=== PATIENT | female | born 1960 | race Caucasian/White ===

== ENCOUNTER → 2020-03-21 | Outpatient (CLI) | payer OTHER ==
--- NOTE | 2020-03-21 14:48 | XR ---
Bilateral hips HISTORY: Pain 2 views of each hip submitted There is an insertional enthesophyte bilaterally the greater trochanters. Marginal spurring present a t the femoral heads. Bone mineralization and alignment are maintained. No fracture or dislocation. Jeffries rgical clips present in the pelvis. IMPRESSION: Mild osteoarthritis.
--- NOTE | 2020-03-21 15:06 | XR ---
Lumbar spine HISTORY: Radiculopathy, pain in hip, M 54.16 3 views of the lumbar spine Bone mineralization, alignment, vertebral body height are maintained. Mild loss of the disc height at L5-S1. There is mild multilevel spondylosis. Sclerosis is present in the posterior elements. Surgica l clips present in the pelvis. Suspect there are vascular calcifications present. IMPRESSION: Degenerative disc disease and facet arthropathy. Additional findings above.
== END | disposition home or self-care (01) ==
LOC: RADXRMAIN 11:28
PROVIDERS: ATTEND Nurse Practitioner Adult Health
DX: M51.16 Intervertebral disc disorders with radiculopathy, lumbar region (principal); M16.0 Bilateral primary osteoarthritis of hip
CPT/HCPCS: 72100; 73521

== ENCOUNTER → 2021-12-15 | Outpatient (CLI) | payer OTHER ==
--- NOTE | 2021-12-16 09:03 | US ---
EXAMINATION TYPE: US arterial LE multi level DATE OF EXAM: 12/15/2021 11:13 AM CLINICAL HISTORY: I73.9 VASCULAR DISEASE R06.02 SOB R07.9 CHEST PAIN. History of diabetes, tobacco us e, hyperlipidemia, and resting pain. Doppler Waveforms: Right: Monophasic multiphasic Left: Monophasic to biphasic Pressure Gradients: Flattened Ankle-Brachial Indices: Right: 1.03 Left: 0.72 IMPRESSION: Normal KARTHIKEYAN values. Loss of phasicity is present, this however may be technical in etiolo gy. Correlate clinically.
== END | disposition home or self-care (01) ==
LOC: RADUSWWP 10:37
PROVIDERS: ATTEND Family Medicine
DX: I73.9 Peripheral vascular disease, unspecified (principal)
CPT/HCPCS: 93923

== ENCOUNTER → 2022-02-05 | Outpatient (CLI) | payer OTHER ==
--- NOTE | 2022-02-05 10:38 | CTL ---
EXAMINATION TYPE: CT Low Dose Lung DATE OF EXAM ORDERED: 02/05/2022 COMPARISON: none HISTORY: . Low Dose CT Lung Screening CT DLP: 95.[address] CTDI: 2.7 mGy IV CONTRAST USED: None. SCREENING VISIT: First visit COMPARISON: None. TECHNIQUE: Low dose computed tomography scan was performed through the chest at 1 millimeter thick se ctions and reconstructed images in the coronal plane at [address] DIAGNOSTIC QUALITY: Satisfactory FINDINGS: LUNG NODULES: Not presentLeft lung: no nodules identified.Right lung: no nodules identified. Calcifi ed granuloma right lower lobe. LUNGS: COPD: Severity: None Fibrosis: Severity:None Lymph nodes: None Other findings: None RIGHT PLEURAL SPACE: Effusion: None Calcification: None Thickening: None Pneumothorax: None LEFT PLEURAL SPACE: Effusion: None Calcification: None Thickening: None Pneumothorax: None HEART: Heart Size: Mildly enlarged Coronary calcification: Mild Pericardial effusion: None OTHER FINDINGS: Upper abdomen: No significant abnormality Bony thorax: Degenerative changes Supraclavicular region: No significant abnormalityOther: No significant abnormalityI IMPRESSION: Evidence of remote granulomatous disease. FOLLOW UP CT CHEST RECOMMENDATION: Follow-up screening in one year CT LUNG RAD: LUNG RAD CATEGORY 2 benign
== END | disposition home or self-care (01) ==
LOC: RADCTMAIN 09:26
PROVIDERS: ATTEND Family Medicine
DX: Z12.2 Encounter for screening for malignant neoplasm of respiratory organs (principal); Z87.891 Personal history of nicotine dependence
CPT/HCPCS: 71271

== ENCOUNTER → 2022-02-12 | Outpatient (CLI) | payer OTHER ==
--- NOTE | 2022-02-12 18:09 | CA ---
Stress Echo Report Liza Mack Age: 61 Gender: F : 1960 Exam Date: 02/12/2022 09:36 Exam Location: [facility] Ht (in): 62 Wt (lb): 160 Ordering Physician: Ashely Moreno MD Referring Physician: JERSON,, Electrical Hardware Engineer: Stephanie Chilel RDCS Technologist Procedure CPT: Indication: I73.9 VASCULAR DISEASE R06.02 SOB R07.9 CHEST PAIN ICD-9 Codes: Rhythm: Patient History: Cardiac Medications: Medications in past 24 hours: Contrast: Lumason Stress Results Protocol: Samy Total dose(mL): 5 Exercise Duration (min:sec): Max ST Depression (mm): Angina Score: Gar Score: METS: 4.6 Resting HR: 87 Resting BP: 116 / 64 Peak HR: 121 Peak BP: 135 / 75 Max Predicted HR: 161 75 % Max Predicted HR Target HR: 137 Double Product: [id number] Stress Summary: BP Response: Reason for Termination: Cardiac Symptoms: ECG Analysis Resting ECG: Stress ECG: Arrhythmia: Echo Analysis Resting Echo: Peak Echo Analysis: MEASUREMENTS (Male/Female) Normal Values CONCLUSIONS Average exercise tolerance Normal EKG in response to exercise Normal echocardiogram in response to exercise Dr. Gian Marquez MD (Electronically Signed) Final Date: 12 February 2022 18:08
== END ==
LOC: RADNMMAIN 09:11
PROVIDERS: ATTEND Family Medicine
DX: R06.02 Shortness of breath (principal); I73.9 Peripheral vascular disease, unspecified; R07.9 Chest pain, unspecified
CPT/HCPCS: C8930; Q9950; 93351

== ENCOUNTER → 2022-03-22 | Outpatient (CLI) | payer OTHER ==
--- NOTE | 2022-03-23 09:39 | CA ---
Transthoracic Echo Report Name: Liza Mack Age: 61 Gender: F : 1960 Exam Date: 03/22/2022 13:20 Exam Location: [facility] Ht (in): 62 Wt (lb): 150 Ordering Physician: Ashely Moreno MD Attending/Referring Phys: Ashely Moreno MD Operator Prefinish Daisy Jeronimo RDCS Procedure CPT: Indications: I73.9 VASCULAR DISEASE R06.02 SOB R07.9 CHEST PAIN Cardiac Hx: Technical Quality: Fair Contrast 1: Total Dose (mL): Contrast 2: Total Dose (mL): MEASUREMENTS (Male / Female) Normal Values 2D ECHO LV Diastolic Diameter PLAX 3.5 cm 4.2 - 5.9 / 3.9 - 5.3 cm LV Systolic Diameter PLAX 2.5 cm IVS Diastolic Thickness 0.9 cm 0.6 - 1.0 / 0.6 - 0.9 cm LVPW Diastolic Thickness 1.0 cm 0.6 - 1.0 / 0.6 - 0.9 cm LV Relative Wall Thickness 0.5 RV Internal Dim ED PLAX 2.3 cm LA Volume 28.4 cm??? 18 - 58 / 22 - 52 cm??? M-MODE Aortic Root Diameter MM 3.2 cm LA Systolic Diameter MM 3.1 cm LA Ao Ratio MM 1.0 AV Cusp Separation MM 1.9 cm DOPPLER AV Peak Velocity 125.0 cm/s AV Peak Gradient 6.2 mmHg AV Mean Velocity 71.8 cm/s AV Mean Gradient 2.4 mmHg AV Velocity Time Integral 19.2 cm LVOT Peak Velocity 123.9 cm/s LVOT Peak Gradient 6.1 mmHg LVOT Velocity Time Integral 25.9 cm MV Area PHT 4.3 cm??? Mitral E Point Velocity 56.7 cm/s Mitral A Point Velocity 97.1 cm/s Mitral E to A Ratio 0.6 MV Deceleration Time 175.6 ms TR Peak Velocity 195.7 cm/s TR Peak Gradient 15.3 mmHg Right Ventricular Systolic Press 20.3 mmHg FINDINGS Left Ventricle Normal Left ventricular size, wall thickness, systolic function with no obvious regional wall motion abnormalities. Normal Left ventricular diastolic filling pattern. Left ventricular ejection fraction is estimated at 55-60 %. Right Ventricle Normal right ventricular size and function. Right ventricular systolic pressure within normal limits. Right Atrium Normal right atrial size. Left Atrium Normal left atrial size. Mitral Valve Structurally normal mitral valve. Mitral valve thickened. Mild mitral annular calcification. Mild mitral regurgitation. Aortic Valve No aortic valve stenosis or regurgitation. Tricuspid Valve Structurally normal tricuspid valve. Mild tricuspid regurgitation. Pulmonic Valve Trace pulmonic regurgitation. Pericardium No pericardial effusion. Echo free space anterior to the right ventricle likely represents a fat pad. Aorta Normal size aortic root and proximal ascending aorta. CONCLUSIONS Normal biventricular dimension and systolic function Mitral annular calcifications Previewed by: Dr. Gian Marquez MD (Electronically Signed) Final Date: 23 March 2022 09:37
== END | disposition home or self-care (01) ==
LOC: RADECHMAIN 13:18
PROVIDERS: ATTEND Family Medicine
DX: I34.81 Nonrheumatic mitral (valve) annulus calcification (principal)
CPT/HCPCS: 93306

== ENCOUNTER → 2022-12-16 | Outpatient (CLI) | payer OTHER ==
--- NOTE | 2022-12-16 11:31 | US ---
EXAMINATION TYPE: US arterial LE multi level DATE OF EXAM: 12/16/2022 9:43 AM COMPARISON: 12/15/2021 CLINICAL INDICATION: Female, 62 years old with history of I73.9 PERIPHERAL VASCULAR DISEASE; PVD History of: Smoker: Yes Hypertension: No Diabetic: No Hyperlipidemia: Yes TIA/CVA: No Previous Vascular Surgery: No CAD: No VA: No Vascular Ulcers: No Claudication: No Gangrene: No Doppler Waveforms: Right: Multiphasic Left: Multiphasic Ankle-Brachial Indices: Right: 0.97 Left: 0.68 Toe Brachial Indices: Right: 0.83 Left: 0.69 IMPRESSION: 1. Abnormal left KARTHIKEYAN suggestive of mild to moderate atherosclerotic peripheral vascular occlusive dis ease. 2. Normal right KARTHIKEYAN.
== END | disposition home or self-care (01) ==
LOC: RADUSWWP 08:59
PROVIDERS: ATTEND Family Medicine
DX: I73.9 Peripheral vascular disease, unspecified (principal); E78.5 Hyperlipidemia, unspecified; F17.210 Nicotine dependence, cigarettes, uncomplicated; R00.2 Palpitations
CPT/HCPCS: 93923

== ENCOUNTER → 2024-01-05 | Outpatient (CLI) | payer OTHER ==
--- NOTE | 2024-01-25 11:28 | MM ---
Reason for Exam: Post Procedure Mammogram. Risk Values: Rhonda 5 year model risk: 1.0%. NCI Lifetime model risk: 4.7%. Tissue Density: Right: The breasts are heterogeneously dense, which may obscure small masses. Pathology Description: Location: 10 o'clock. Marker Left Behind. Needle Type: Celero Cores: 6 Gauge: 12 The procedure of ultrasound guided core biopsy was explained to the patient. Benefits, alternatives, and risks were discussed. An informed consent was then obtained. The patient was placed in supine positioning for imaging and for the procedure. The overlying skin was prepped and draped in usual sterile fashion. Lidocaine buffered with bicarbonate was used as anesthetic into the skin and subcutaneous tissue up to area of concern in the right 10:00 breast. A ravi was made with surgical scalpel. Under ultrasound guidance, a 12-gauge vacuum assisted biopsy gun device was used to obtain 6 core samples. Following this, a biopsy clip was left in lesion. The patient tolerated the procedure well without any immediate complication. The patient was kept in the radiology department for short stay after the procedure and then discharged home in stable condition. Postprocedure mammogram: The patient was transferred to mammography for physician ordered post procedure mammogram for clip placement verification. Impression: Successful, uncomplicated ultrasound guided core biopsy of area of concern in the right 10:00 breast, full pathology results to follow. Pathology Results: Result: Benign, Fibrocystic change. Pathology and radiology were reviewed. Findings are concordant. RIGHT BREAST, TEN O'CLOCK, 5 CM FROM NIPPLE, ULTRASOUND GUIDED BIOPSY: Fibrocystic change with sclerosing adenosis and microcalcifications (see note). Notes P63 on A1 and SMM[facility] on A2 are both positive for myoepithelial cells, confirming absence of invasive carcinoma. Overall Assessment: Benign Assessment: MG diagnostic mammo RT wo CAD - Right: Benign, BI-RAD 2. Management: Diagnostic Breast Ultrasound of the right breast in 6 months. Electronically signed and approved by: Rajeev Meraz M.D. Radiologis
--- NOTE | 2024-01-26 09:16 | USB ---
Reason for Exam: Additional evaluation requested from abnormal screening. Patient History: 01/05/2024, Benign US biopsy breast VAD RT on the right side. Risk Values: Rhonda 5 year model risk: 1.2%. NCI Lifetime model risk: 5.6%. Technique: Method: Targeted. Doppler: Color. Patient Position: Supine. Prior Study Comparison: 01/05/2024 Right MG diagnostic mammo RT wo CAD, [facility]. Findings: The upper outer quadrant of the right breast was scanned. Nondisplaced right hyperechoic area right breast 10:00 position 5 cm from the nipple. Tissue diagnosis is recommended. Overall Assessment: Suspicious, BI-RAD 4 Management: Ultrasound Core Biopsy of the right breast. A clinical breast exam by your physician is recommended on an annual basis and results should be correlated with mammographic findings. This exam should not preclude additional follow-up of suspicious palpable abnormalities. Results were given to the patient verbally at the time of exam. Electronically signed and approved by: Rajeev Meraz M.D. Radiologis
== END | disposition home or self-care (01) ==
LOC: RADMAMWWP 10:44
PROVIDERS: ATTEND Family Medicine
DX: N63.10 Unspecified lump in the right breast, unspecified quadrant (principal); N60.21 Fibroadenosis of right breast
CPT/HCPCS: 88305; 88342; 88341; 77065; 19083; 76642; A4648

== ENCOUNTER → 2024-01-05 | Day surgery (SDC) | payer OTHER | LOC: RADMAMWWP 10:10 | PROVIDERS: ATTEND Family Medicine | DX: R92.8 Other abnormal and inconclusive findings on diagnostic imaging of breast (principal) ==